=== PATIENT | male | born 1960 ===

== ENCOUNTER → 2018-08-17 21:46 | Outpatient (REF) | payer OTHER, SELFPAY ==
[2018-08-17 21:49] LABS: Bacteria Urine None Seen; RBC Urine None Seen (0-5/HPF)
[2018-08-17 21:54] LABS: Appearance Urine UA CLEAR; Bilirubin Urine UA NEGATIVE (NEGATIVE); Color Urine UA YELLOW; Glucose Urine UA NEGATIVE (Normal); Ketones Urine UA NEGATIVE (NEGATIVE); Leukocyte Esterase Urine UA NEGATIVE (NEGATIVE); Nitrite Urine UA NEGATIVE (Negative); Occult Blood Urine UA NEGATIVE (Negative); Protein Urine UA NEGATIVE (Negative); Specific Gravity Urine UA 1.025 (1.000-1.035); Urobilinogen Urine UA 0.2 E.U./dL (0.2); pH Urine UA 5.5 (4.5-8.0)
[2018-08-17 21:55] LABS: Add Manual Diff / Slide Review NO; Basophils Percent Auto 0.5 % (0-2); Eosinophils Percent Auto 2.4 % (2-4); Hemoglobin 16.1 g/dL (13.5-17.5); Lymphocytes Percent Auto 46.2 % (25-40); Mean Corpuscular HGB Conc 33.6 % (30-36); Mean Corpuscular Hemoglobin 31.6 PG (26-34); Mean Corpuscular Volume 94.1 fL (80-100); Neutrophils Absolute Auto 1600 /uL (3000-5900); Neutrophils Percent Auto 38.9 % (50-75); Platelet Count 209 X10^3/uL (150-400); Red Cell Distribution Width 13.2 % (11.6-14.8); White Blood Cell Count 4.2 X10^3/uL (4.5-11.0)
[2018-08-17 22:10] LABS: Culture Indicated Urine Cult Not Indicated; Squamous Epithelial Cell Urine 0-1 /HPF; Urine Comments Microscopic Normal; WBC Urine 0-1/HPF (0-5/HPF)
[2018-08-17 22:33] LABS: Alanine Aminotransferase 17 IU/L (21-72); Albumin 4.5 g/dL (3.5-5.0); Albumin Globulin Ratio 1.8 (1.0-2.8); Alkaline Phosphatase 78 U/L (38-126); Aspartate Aminotransferase 30 IU/L (17-59); BUN Creatinine Ratio 27.8 (6-22); Bilirubin Total 0.7 mg/dL (0.2-1.3); Blood Urea Nitrogen 25 mg/dL (9-20); Calcium 9.3 mg/dL (8.4-10.2); Carbon Dioxide 29 mmol/L (22-32); Chloride 102 mmol/L (98-107); Cholesterol 185 mg/dL (140-199); Estimated Glomerular Filt Rate > 60.0 mL/min (>60); Globulin 2.5 g/dL (1.7-4.1); Glucose 91 mg/dL (70-100); HDL Cholesterol 69 mg/dL (40-60); HEMOLYSIS < 15 (0-50); LDL Cholesterol Calculated 104 mg/dL (<100); Potassium 4.6 mmol/L (3.4-5.1); Sodium 144 mmol/L (137-145); Triglycerides 61 mg/dL (35-150)
[2018-08-17 22:45] LABS: T4 Total Thyroxine 8.18 ug/dL (5.5-11.0)
[2018-08-17 22:59] LABS: Thyroid Stimulating Hormone 2.18 uIU/mL (0.47-4.68)
[2018-08-21 14:04] LABS: PSA Total 0.49 ng/mL (< 4.01)
== END ==
LOC: LAB 21:46
PROVIDERS: Visit Provider Family Medicine
DX: Z00.00 Encounter for general adult medical examination without abnormal findings (principal); Z13.89 Encounter for screening for other disorder; Z80.42 Family history of malignant neoplasm of prostate
CPT/HCPCS: 80053; 80061; 81001; 82728; 84153; 84154; 84436; 84443; 85025